=== PATIENT | male | born 1940 | race Caucasian/White ===

== ENCOUNTER 2021-04-11 10:49 | Observation (INO) | payer MEDICARE, BC ==
[~2021-04-11] VITALS: Ht 175.3 cm; Wt 69.5 kg
--- NOTE | ~2021-04-11 | HEMODYNAMI ---
PATIENT:ESPERANZA GRAVES MEDICAL RECORD: [id number] : 42 LOCATION:[facility] D.8 ADMISSION DATE: 04/11/21 Generatedon:111:34 Patient name: ESPERANZA GRAVES Patient #: [id number] SSN: DO B: 1940 Date of study: 04/12/2021 Page: Of Hemodynamic Procedure Report Patient Data Patient Demographics Procedure consent was obtained First Name: ESPERANZA Gender: Male Last Name: STAR : 1940 Middle Initial: M Age: 80 year(s) Patient #: [id number] Race: Unknown Additional ID: [id number] Contact details Address: [address] [place] [address] State: [place] City: [place] Zip code: [address] Past Medical History Allergies Allergen Reaction Date Comments Reported Other allergy 04/12/2021 SULFA,CEFAZOLIN Admission Admission Data Admission Date: 04/11/2021 Admission Time: 11:44 Arrival Date: 04/12/2021 Arrival Time: 0:00 Admit Source: Other Room #: D.2118 Height (in.): 68.9 BSA: 1.85 (m2) Height (cm.): 175 BMI: 22.86 (kg/m2) Weight (lbs.): 154.32 Weight (kg.): 70 Lab Results Lab Result Date: 04/12/2021 Lab Result Time: 0:00 Biochemistry Name Units Result Min Max BUN mg/dl 14 --(--*-)-- 7 18 Creatinine mg/dl 1.3 --(---*)-- 0.6 1.3 eGFR ml/min 56 *-(----)-- 90 120 NONAFRICAN CBC Name Units Result Min Max Hematocrit % 42.8 --(*---)-- 42 54 Hemoglobin g/dl 14 --(*---)-- 13.5 17.5 Procedure Procedure Types Cath Procedure Diagnostic Procedure C [facility] w/Coronaries Sedation Charges Moderate Sedation 25-39 minutes PCI Procedure Coronary Stent Coronary Stent Initial Hemochron ACT Test Procedure Description Procedure Date Procedure Date: 04/12/2021 Procedure Start Time: 11:08 Procedure End Time: 11:29 Procedure Staff Name Function Ang Garcia MD Performing Physician Anna Mcnamara RT Monitor Noemi Luevano RT Scrub Sang Ruggiero RN Nurse Semaj Carr RN Nurse Procedure Data Cath Procedure Fluoroscopy Diagnostic fluoroscopy Total fluoroscopy Time: 4.5 time: 4.5 min min Diagnostic fluoroscopy Total fluoroscopy dose: 526 dose: 526 mGy mGy Contrast Material Contrast Material Type Amount (ml) Isovue 370 97 Entry Location Entry Primary Successful Side Size Upsize Upsize Entry Closure Succes sful Closure Location (Fr) 1 (Fr) 2 (Fr) Remarks Device Remarks Femoral Right 5 Fr 6 Fr Exoseal artery Short Estimated blood loss: 10 ml Diagnostic catheters Device Type Used For End Catheter Placement MULTIPACK JL 4.0 5Fr Procedure catheter MULTIPACK 3DRC 5Fr Procedure catheter MULTIPACK Pigtail 5 Fr Procedure catheter Procedure Complications No complications Procedure Medications Medication Administration Route Dosage 0.9% NaCl I.V. 100 ml/hr Oxygen etCO2 Nasal cannula 2 l/min Heparin Flush Bag added to field 2 bags (1000units/500ml NS) Lidocaine 2% added to field 20 Versed I.V. 1 mg Fentanyl I.V. 50 mcg Versed I.V. 1 mg Heparin Bolus I.V. 5000 units Integrilin (Bolus I.V. 6.2 ml 2mg/ml) Fentanyl I.V. 50 mcg Plavix P.O. 600 mg Hemodynamics Rest BSA: 1.85 (m2) HGB: 14 (g/dl) O2 Consumption: Estimated: 201.37 (ml/min) O2 Cons umption indexed: Estimated:108.85 (ml/min/m) Heart Rate: 55 (bpm) Pressure Samples Time Site Value (mmHg) Purpose Heart Use Rate(bpm) 11:15 LV 75/-7,-5 Snapshot 66 Gradients Valve Time Site Site Mean SEP/DFP Peak To Heart Use 1 2 (mmHg) (sec/min) Peak Rate (mmHg) (bpm) Aortic 11:15 LV AO 68 Snapshots Pre Cath Intra NCS Post Cath Vital Signs Time Heart Resp SPO2 etCO2 NIBP (mmHg) Rhythm Pain Sedation Rate (ipm) (%) (mmHg) Status Level (bpm) 10:55:11 66 18 100 30.2 138/63(109) NSR 0 (11) 10(A) , No pain 10:59:32 60 13 97 0 137/65(97) NSR 0 (11) 10(A) , No pain 11:03:50 61 15 96 26.4 123/65(98) NSR 0 (11) 10(A) , No pain 11:08:04 57 15 96 28.7 116/66(94) NSR 0 (11) 9(A) , No pain 11:12:14 65 14 96 29.4 120/70(92) NSR 0 (11) 9(A) , No pain 11:16:28 69 14 96 34 123/65(88) NSR 0 (11) 9(A) , No pain 11:21:20 72 15 95 17.3 134/69(101) NSR 0 (11) 9(A) , No pain 11:26:32 68 14 95 15.1 156/68(109) NSR 0 (11) 10(A) , No pain 11:30:54 60 12 98 29.4 130/71(114) NSR 0 (11) 10(A) , No pain Medications Time Medication Route Dose Verified Delivered Reason Notes Effectiveness by by 10:53:05 0.9% NaCl I.V. 100 Ang Domínguez used for ml/hr St Vu Ruggiero RN procedure 10:53:14 Oxygen etCO2 2 Ang Domínguez used for Nasal l/min St Vu Ruggiero RN procedure cannula 10:53:25 Heparin Flush added 2 Ang Fry used for Bag to bags [facility] procedure (1000units/500ml field MD FELIPE NS) 10:53:34 Lidocaine 2% added 20ml Ang Fry for local to vial [facility] anesthetic field MD FELIPE 11:00:52 Versed I.V. 1 mg Ang Domínguez for sedation St Vu Ruggiero RN, MD 11:00:59 Fentanyl I.V. 50 Ang Domínguez for sedation mcg St Vu Ruggiero RN, MD 11:08:22 Versed I.V. 1 mg Ang Domínguez for sedation St Vu Ruggiero RN, MD 11:15:54 Heparin Bolus I.V. 5000 Ang Domínguez for verif ied units St Vu Ruggiero RN anticoagulation with MD semaj carr rn 11:17:08 Integrilin I.V. 6.2 Ang Domínguez for Waste d (Bolus 2mg/ml) ml St Vu Ruggiero RN antiplatelet 3.8 ml therapy of vial 11:22:05 Fentanyl I.V. 50 Ang Domínguez for sedation mcg St Vu Ruggiero RN, MD 11:29:49 Plavix P.O. 600 Ang Domínguez for mg St Vu Ruggiero RN antiplatelet therapy Procedure Log Time Note 10:27:52 Informed consent obtained and on chart 10:28:16 Procedure Status Urgent Heart Cath (IP). 10:28:19 Time tracking: Call back (After hours or weekends) 10:28:28 Plan of Care:Hemodynamics will remain stable., Cardiac rhythm will remain stable., Comfort level will be maintained., Respiratory function will remain adequate., Patient/ family verbilizes understanding of procedure., Procedure tolerated without complication., Recovers from procedure without complications.. 10:28:30 Sang Ruggiero RN sent for patient. Start room use. 10:28:38 H&P Date Dictated: 04/12/2021 ER History on chart.. 10:37:36 Patient allergic to Other allergySULFA,CEFAZOLIN 10:38:13 Lab Result : BUN 14 mg/dl 10:38:13 Lab Result : eGFR NONAFRICAN 56 ml/min 10:38:13 Lab Result : Creatinine 1.3 mg/dl 10:38:13 Lab Result : Hemoglobin 14 g/dl 10:38:13 Lab Result : Hematocrit 42.8 % 10:40:20 Patient Weight : 154.32 lbs 10:40:24 Patient Height : 68.9 inches 10:40:28 Arrival Date: 04/12/2021 12:00:00 AM 10:46:15 Patient received from Med II to CCL 1 Alert and oriented. Tansferred to table in Supine position. 10:46:16 Warm blankets applied, and musa hugger turned on for patient comfort. 10:46:16 Correct patient and procedure confirmed by team. 10:52:45 ECG and BP/O2 sat monitors applied to patient. 10:52:46 Baseline sample Acquired. 10:52:46 Vital chart was started 10:52:50 Rhythm: sinus rhythm 10:52:51 Full Disclosure recording started 10:52:54 Pre-procedure instructions explained to patient. 10:52:55 Pre-op teaching completed and patient verbalized understanding. 10:52:58 Family in patients room. 10:53:05 0.9% NaCl 100 ml/hr I.V. was administered by Sang Ruggiero RN; used for procedure; Verbal order read back and verified. 10:53:14 Oxygen 2 l/min etCO2 Nasal cannula was administered by Sang Ruggiero RN; used for procedure; Verbal order read back and verified. 10:53:25 Heparin Flush Bag (1000units/500ml NS) 2 bags added to field was administered by Ang Garcia MD; used for procedure; Verbal order read back and verified. 10:53:34 Lidocaine 2% 20ml vial added to field was administered by Ang Garcia MD; for local anesthetic; Verbal order read back and verified. 10:56:23 Patient NPO since Midnight. 10:56:26 Is the patient allergic to Iodine/contrast media? No. 10:56:28 Was the patient premedicated? No 10:56:31 Is patient on blood thinner?No 10:56:34 Patient diabetic? No. 10:56:35 If diabetic: On Metformin? N/A 10:56:36 ----Pre-sedation anethsthesia assessment.---- 10:56:39 Previous problem with sedation/anesthesia? No ? 10:56:40 Snore? Yes 10:56:44 Sleep apnea? Yes 10:56:45 Deviated septum? No 10:56:46 Opens mouth fully? Yes 10:56:47 Sticks out tongue? Yes 10:56:52 Airway obstruction? Yes ? 10:56:57 Pre procedure: right dorsailis pedis pulse 2+ Normal; easily identifiable; not easily obliterated 10:57:00 Modified Loyd's test Ulnar > 7 seconds. 10:57:01 Patient pain scale 0/10 ?. 10:57:23 IV patent on arrival in right antecubital with 0.9% NaCl at [facility]. 10:57:26 Lab results completed and on chart. 10:57:29 Stress Test: no; N/A ? 10:57:32 Right groin area was prepped with chlora-prep and draped in sterile fashion 10:57:33 Alarms reviewed by R. N. 10:57:34 Sharps counted by scrub and verified by R.N. 10:57:36 Use device set Femoral Dx 10:57:38 ACIST Syringe (67684) opened to sterile field. 10:57:38 Bag Decanter (2002S) opened to sterile field. 10:57:39 Medline Cath Pack ([id number]) opened to sterile field. 10:57:40 ACIST Hand Control (66940) opened to sterile field. 10:57:41 ACIST Manifold (79545) opened to sterile field. 10:57:42 DIAGNOSTIC Multipack 5Fr catheter set (TF4045) opened to sterile field. 10:57:44 SHEATH 5FR [place] (EHL835) opened to sterile field. 10:57:45 EMERALD Guide Wire (463-312) opened to sterile field. 10:57:46 Tegaderm 4 x 4 (1626W) opened to sterile field. 10:58:03 ACC Patient presents with Unstable Angina CCS Anginal Class 2--Slight limitation of ordinary activity. 10:58:06 Admit Source: Other 10:58:39 --------ALL STOP TIME OUT------ 10:58:40 Final Timeout: patient, procedure, and site verified with staff and physician. All members of the team are in agreement. 10:58:42 Right groin site verified by team. 10:58:51 Fire Safety Assessment: A--An alcohol-based skin anteseptic being used preoperatively., C--Open oxygen or nitrous oxide is being used., D--An ESU, laser, or fiber-optic light is being used. 10:58:56 Physical assessment completed. ASA score P 2 - A patient with mild systemic disease as per Ang Garcia MD. 10:59:00 3a) 45-59 Moderately reduced kidney function. 10:59:03 Maximum allowable contrast dose (3.7 X eGFR X 0.75)155 ml. 10:59:07 Sedation plan: IV Moderate Sedation Medication:Versed, Fentanyl 11:00:52 Versed 1 mg I.V. was administered by Sang Ruggiero RN; for sedation; Verbal order read back and verified. 11:00:59 Fentanyl 50 mcg I.V. was administered by Sang Ruggiero RN; for sedation; Verbal order read back and verified. 11:08:17 Procedure started. 11:08:22 Versed 1 mg I.V. was administered by Sang Ruggiero RN; for sedation; Verbal order read back and verified. 11:08:28 Local anesthetic to right femoral artery with Lidocaine 2% by Ang Garcia MD.INITIAL ACCESS ONLY 11:09:46 A 5 Fr sheath was inserted into the Right Femoral artery 11:10:14 A MULTIPACK JL 4.0 5Fr catheter was advanced over the wire and used for Procedure. 11:11:03 LCA angiography performed. 11:11:07 Injector settings: Ml/sec: 3, Volume: 6, 11:11:33 Catheter removed. 11:11:40 A MULTIPACK 3DRC 5Fr catheter was advanced over the wire and used for Procedure. 11:12:29 RCA angiography performed. 11:12:32 Injector settings: Ml/sec: 3, Volume: 6, 11:12:40 Catheter exchanged over wire. 11:14:13 A MULTIPACK Pigtail 5 Fr catheter was advanced over the wire and used for Procedure. 11:14:49 LV gram done using BAUM 11:15:05 LV hemodynamics recorded. 11:15:07 Injector settings: Ml/sec: 10, Volume: 20, 11:15:13 EF : 55 % 11:15:18 Catheter removed. 11:15:20 Proceeding to intervention. 11:15:24 Use device set LALO PCI 11:15:26 INFLATOR Merit BasixCompak (DX9721) opened to sterile field. 11:15:27 WHISPER 300cm guide wire ([id number]) opened to sterile field. 11:15:36 SHEATH 6FR [place] (PMW617) opened to sterile field. 11:15:46 Sheath upsized to a 6 Fr Short. 11:15:54 Heparin Bolus 5000 units I.V. was administered by Sang Ruggiero RN; for anticoagulation; verified with semaj carr rn Verbal order read back and verified. 11:16:14 GUIDE 6FR XBLAD 3.5 catheter ([id number]) opened to sterile field. 11:16:34 6 Fr XBLAD 3.5 guide catheter was inserted over the wire 11:16:43 Pre PCI Site: Knik pCirc has 90% stenosis. 11:16:47 ACC Pre-intervention MIGUEL Flow is 1. 11:17:08 Integrilin (Bolus 2mg/ml) 6.2 ml I.V. was administered by Sang Ruggiero RN; for antiplatelet therapy; Wasted 3.8 ml of vial Verbal order read back and verified. 11:18:19 WHISPER 300 wire advanced. 11:20:22 Wire advanced across lesion. 11:21:11 Inflate balloon Inflation number: 1 A EUPHORA 3.0 x 15 Balloon ([id number]) was prepped and advanced across the Prox CX 90, then inflated to 10 PADILLA for 0:21 (min:sec) . 11:21:45 Inflation number: 2 The EUPHORA 3.0 x 15 Balloon ([id number]) was reinflated across the Prox CX , to 12 PADILLA for 0:29 (min:sec) . 11:22:05 Fentanyl 50 mcg I.V. was administered by Sang Ruggiero RN; for sedation; Verbal order read back and verified. 11:22:41 Balloon removed over the wire. 11:24:49 Place stent Inflation Number: 3 A TONY RX 3.0 x 15 stent ([id number]) was prepped and advanced across the Prox CX . The stent was deployed at 14 PADILLA for 0:20 (min:sec) . 11:25:47 Inflation number: 4 The stent balloon was then re-inflated across the Prox CX to 6 PADILLA for 0:21 (min:sec) . 11:26:25 Stent catheter was removed intact over wire. 11:26:26 Wire removed. 11:26:26 Guide catheter removed. 11:26:30 EXOSEAL 6Fr (EX600) opened to sterile field. 11:27:11 Sheath removed intact; hemostasis achieved with Exoseal to the Right Femoral artery. 11:27:35 Procedure ended.(Physican Out) 11:27:45 Fluoroscopy time 04.50 minutes. 11:27:52 Fluoroscopy dose: 526 mGy 11:27:52 Flurop Dose total: 526 11::58 Dose Area Product 70300 mGy/cm. 11:28:10 Contrast amount:Isovue 370 97ml. 11:28:13 Maximum allowable dose exceeded? No. 11:28:14 Sharps counted by scrub and verified by R.N. 11:28:17 Post-op/insertion site Right Femoral artery dressed using a 4 x 4 and Tegaderm. 11:28:23 Post right femoral artery:stable, soft, clean and dry 11::25 Post Procedure Pulses reassessed and unchanged 11::28 Post procedure: right dorsailis pedis pulse 2+ Normal; easily identifiable; not easily obliterated. 11::31 Post-procedure physical assessment completed. ASA score P 2 - A patient with mild systemic disease as per Ang Garcia MD. 11:28:33 Post procedure rhythm: unchanged. 11::36 Estimated blood loss: 10 ml 11::38 Post procedure instruction explained to patient.Patient verbalizes understanding. 11::38 Patient needs reinforcement of post procedure teaching. 11::53 Procedure type changed to Cath procedure, Diagnostic procedure, LHC, [facility] w/Coronaries, Sedation Charges, Moderate Sedation 25-39 minutes, PCI procedure, Coronary Stent, Coronary Stent Initial, Hemochron ACT Test 11::25 Procedure and supply charges have been captured, reviewed, submitted and are correct. 11::31 Procedure Complication : No complications 11::38 [facility] Findings: MVD- PCI performed (see procedure note) 11:29:39 Operative report dictated upon procedure completion. 11:29:40 See physician's report for complete and final results. 11::48 Report given to [facility]. 11:29:49 Plavix 600 mg P.O. was administered by Sang Ruggiero RN; for antiplatelet therapy; Verbal order read back and verified. 11::52 Patient transfered to [facility] with Bed. 11:29:56 Procedure ended. 11:29:56 Full Disclosure recording stopped 11:30:36 ACC-PCI Only Patient was given prescriptions, or instructed by Ang Garcia MD to start/continue the following medications upon discharge: Plavix 11:30:38 End room use (Document Last) 11:30:48 End room use (Document Last) 11:31:48 End room use (Document Last) 11:32:43 ACT drawn and resulted at 299 seconds. (normal therapeutic range 180-240 seconds). 11:34:16 Vital chart was stopped Intervention Summary Intervention Notes Time ActionType Lesion and Equipment Used Action# Pressure Duration Attributes 11:21:11 Inflate Prox CX EUPHORA 3.0 x 1 10 00:21 balloon 15 Balloon ([id number]) 11:21:45 Reinflate Prox CX EUPHORA 3.0 x 2 12 00:29 balloon 15 Balloon ([id number]) 11:24:49 Place stent Prox CX TONY RX 3.0 x 3 14 00:20 15 stent ([id number]) 11:25:47 Reinflate Prox CX TONY RX 3.0 x 4 6 00:21 stent 15 stent balloon ([id number]) Device Usage Item Name Manufacture Quantity Catalog Hospital Part [facility] Lot# / Number Charge Number Stock Stock Serial# Code ACIST Syringe Acist 1 33986 746098 705755 645569 20 (07812) Medical Systems Inc Bag Decanter Microtek 1 2001S 649952 64418 339361 5 (2001S) Medical Inc. Medline Cath Medline 1 [id number] 489202 80824 943443 5 Pack ([id number]) ACIST Hand Acist 1 73709 003848 492893 395418 5 Control Medical (15787) Systems Inc ACIST Manifold Acist 1 43591 554296 968897 747669 5 (36156) Medical Systems Inc DIAGNOSTIC Cardinal 1 WF9797 044116 01114 365897 30 Multipack 5Fr Health catheter set (NQ7589) SHEATH 5FR Terumo 1 YMP301 401220 555977 193161 5 [place] (LRC964) EMERALD Guide Cardinal 1 502-455 644823 555050 298126 5 Wire (502-455) [facility] Tegaderm 4 x 4 3M 1 1626W 900831 448456 226812 5 (1626W) MULTIPACK JL Cardinal 1 866664 5 4.0 5Fr Health catheter MULTIPACK 3DRC Cardinal 1 142743 5 5Fr catheter Health MULTIPACK Cardinal 1 142311 5 Pigtail 5 Fr Health catheter INFLATOR Merit Merit 1 GC8281 445288 270284 968999 15 CortriumohSungy Mobile Medical (OM6586) WHISPER 300cm Clay 1 [id number] 229091 861380 460922 5 guide wire Vascular (1650658NF) SHEATH 6FR Terumo 1 BKX996 148222 570300 823127 40 [place] (RBE025) GUIDE 6FR Cardinal 1 03590473 563223 657884 861084 10 XBLAD 3.5 Health catheter (23846457) EUPHORA 3.0 x Medtronic 1 [id number] 077470 266219 058843 5 [id number] 15 Balloon (DEG2712V) TONY RX 3.0 x Medtronic 1 [id number] 097535 3408523 437385 5 [id number] 15 stent ([id number]) EXOSEAL 6Fr Cardinal 1 EX600 329535 436366 161468 10 (EX600) Health Signature Audit [place] Stage Time Signature Unsigned Intra-Procedure 04/12/2021 Anna Mcnamara 11:30:48 AM RT(R) Intra-Procedure 04/12/2021 Sang Ruggiero RN 11:31:48 AM Intra-Procedure 04/12/2021 Ang Koch 11:34:14 AM uV FEL[place] [address] [id number] [place] [address]
--- NOTE | ~2021-04-11 | EC ---
PATIENT:ESPERANZA GRAVES DATE OF SERVICE: 04/11/21 SEX: M MEDICAL RECORD: [id number] DATE OF : 42 LOCATION:D.M2 D.211 AGE OF PATIENT: 80 ADMISSION DATE: 04/11/21 REFERRING PHYSICIAN: INTERPRETING PHYSICIAN: NEA MAY MD ECHOCARDIOGRAM REPORT ECHO CHARGES 4 ECHO COMPLETE Date: 04/12/21 CLINICAL DIAGNOSIS: CHEST PAIN HX OF CAD/STENTS ECHOCARDIOGRAPHIC MEASUREMENTS (adult normal given) AC root (d.<3.7cm) 3.0 cm LV Septum d (<1.2 cm> 1.2 cm Valve Excursion 1.4 cm LV Septum (systole) 1.6 cm Left Atria (s.<4.0cm> 3.6 cm LVPW d(<1.2cm) 1.6 cm RV (d.<2.3cm) 3.1 cm LVPW (sytole) 1.9 cm LV diastole(<5.6CM) 4.6 cm MV E-F(>70mm/sec) cm LV systole 3.0 cm LVOT Diameter 1.9 cm MV exc.(>10mm) 1.2 cm Est.ejection fraction (50-75%) % DOPPLER: LVIT cm/sec A 65.0 cm/sec E 84.0 cm/sec LA cm/sec RVSP 30 mmHg LVOT 121 cm/sec AOP1/2T m/s Asc. Ao 118 cm/sec RVOT 62 cm/sec RA cm/sec PA 118 cm/sec AV Gradient Peak 5.57 mmHg AV Mean 2.91 mmHg AV Area 3.6 cm MV Gradient Peak 3.29 mmHg MV Mean 1.12 mmHg MV Area cm COMMENTS: Barrel Bung Remover And Dumper: 2 TONIE BROUSSARD Aquatic Facility Manager: 3 Dr. Mosquera TAPE# PACS Pericardial Effusion N DATE OF SERVICE: Adequate 2D, color-flow imaging, spectral Doppler, and M-Mode. FINDINGS: No LVH present. LV internal dimension is normal, Wall motion is normal. EF is greater than or equal to 55%. Aortic valve is tricuspid. No stenosis by Doppler interrogation. Left atrium is normal 3.6 cm. Mitral valve shows no prolapse. Trace MR. Right side is grossly normal. Mild TR. TRANSINT:[id number] Voice Confirmation ID: [id number] DOCUMENT ID: [id number] ECHOCARDIOGRAM REPORT [id number] ESPERANZA GRAVES GREGORY A MD CC: [id number] DICTATION DATE: 04/13/21 1132 ASTRONOMY TEACHER: 04/13/21 1344 DIS IN 04/12/21 [address] [place] [address]
--- NOTE | ~2021-04-11 | CN ---
PATIENT NAME:ESPERANZA GRAVES MEDICAL RECORD: [id number] : 42 LOCATION:[facility] D.2118 ADMIT DATE: 04/11/21 ACCOUNT: [id number] CONSULTING PHYSICIAN: ENA MAY MD REFERRING PHYSICIAN: MICHAELA ELIAS MD DATE OF CONSULTATION: 04/12/2021 HISTORY OF PRESENT ILLNESS: Esperanza Graves is a 80-year-old gentleman typically followed by Dr. Valencia with a history of coronary artery disease, status post intervention to the right. Has a history of hypertension, hyperlipidemia, has been maintaining quite well on medical therapy. He had onset of rest symptomatology yesterday while at home, was seen in [facility], he is finally ruled in for NSTEMI, transferred here for further evaluation. PAST MEDICAL HISTORY: Includes; 1. History of hypertension. 2. Hyperlipidemia. 3. Coronary artery disease as described above. MEDICATIONS: Include Flomax 0.4 mg p.o. every day, metoprolol 12.5 every day, pravastatin 80 every day, aspirin 81 every day, vitamin D supplementation. ALLERGIES: SULFA AND ANCEF. SOCIAL HISTORY: Smokes about a pack a day, nondrinker. Easily takes care of all his ADLs. No set exercise program. FAMILY HISTORY: Has a strong family history of coronary artery disease in several siblings. REVIEW OF SYSTEMS: The patient reports easy bruising but reports no swollen glands. The patient reports no fever, no night sweats, no significant weight gain, no significant weight loss. No significant exercise tolerance. The patient reports no dry eyes, no irritation, no vision change. Patient reports no difficulty hearing and no ear pain. Patient reports no frequent nose bleeds or nose and sinus problems. Patient reports on arm pain on exertion. No shortness of breath while lying down. No history of heart murmur. Patient reports no cough, no wheezing or coughing up blood. Patient reports no abdominal pain, no vomiting. Normal appetite. No diarrhea and not vomiting blood. No nausea and no constipation. Patient reports no incontinence. No difficulty urinating. No hematuria. No increased frequency. Patient reports no muscle aches. No weakness, no arthralgias, no back pain. No swelling of the extremities. Patient reports no abnormal mole, no jaundice, no rashes. Reports no loss of consciousness. No weakness and no numbness. No seizures, dizziness, or headaches. The patient reports no depression, no sleep disturbance, feeling safe in a relationship and no alcohol abuse. Patient reports on fatigue. Reports no runny nose or sinus pressure. No itching, no hives, and no frequent sneezing. PHYSICAL EXAMINATION: GENERAL: Well-developed, well-nourished, in no acute distress, appears stated age. Alert and oriented times 3. VITAL SIGNS: Blood pressure 135/51, pulse 57 and regular. HEENT: Normocephalic, atraumatic. NECK: No JVD or bruit. CONSULT REPORT [id number] ESPERANZA GRAVES HEART: Regular. A II/ systolic ejection murmur. LUNGS: Prolonged expiratory phase. ABDOMEN: Soft, nontender. EXTREMITIES: Pulses 2+. There is no edema. NEUROLOGIC: Grossly intact. DIAGNOSTIC DATA: EKG shows nonspecific ST-T changes. IMPRESSION: Non-ST elevation myocardial infarction, known history of coronary artery disease. PLAN: Diagnostic angiography, intervention based on the above. TRANSINT:[id number] Voice Confirmation ID: [id number] DOCUMENT ID: [id number] ENA MAY MD CC: [id number] DICTATION DATE: 04/12/21 1055 TARIFF COUNSEL: 04/12/[address] [facility] [address] [place] [address]
--- NOTE | ~2021-04-11 | OP ---
PATIENT NAME: ESPERANZA GRAVES MEDICAL RECORD: [id number] :42 LOCATION:D. D.[id number] ADMISSION DATE:04/11/21 SURGEON: ENA MAY MD DATE OF OPERATION: 04/12/2021 PROCEDURE PERFORMED: Left heart catheterization, selective coronary angiography, right femoral artery approach. CATHETERS: A 5-Bangladeshi sheath, 5/4 left and right Ramya, 5/4 pig. The procedure was well tolerated. The patient was returned to the connolly. Sheath removed. ExoSeal device was placed. FINDINGS: Left ventriculography in 30 degree BAUM view; normal wall motion and normal systolic function. CORONARY ANATOMY: Left main: Left main is free of disease. 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 Circumflex: Just proximal to the previously placed stent has a tight 90% plus stenosis, obviously a culprit. Right coronary artery: Free of disease. PLAN: Intervention to circumflex momentarily. DESCRIPTION OF PROCEDURE: A 5-Bangladeshi sheath exchanged for a 6-Bangladeshi sheath. XB-LAD guiding catheter provided excellent guide catheter support. A 300 cm Whisper wire was placed across the 90% stenosis, circumflex distal portion of the vessel. Pre-deployment balloon was a 3.0 x 15 mm Euphora. Stent deployed was a 3.0 x 15 mm [place] drug-eluting stent up to 14 atmospheres for 45 seconds. Final angiography showed excellent resolution of 90% stenosis, no significant residual. MIGUEL flow was 3 throughout the procedure. Heparin and Integrilin, both used during the case. Sheath was closed with ExoSeal device. Plavix was loaded in the lab. TRANSINT:[id number] Voice Confirmation ID: [id number] DOCUMENT ID: [id number] ENA MAY MD CC: [id number] DICTATION DATE: 04/12/21 1134 [employer] CONSULTANT: 04/12/21 1513 ADM IN [facility] [address] [place] [address]
[2021-04-11] MEDS ORDERED: PRAVASTATIN SOD10 MG PO ×2 (10:55→13:44)
[2021-04-11] MEDS ORDERED: METOPROLOL TART25 MG PO (10:56)
[2021-04-11] MEDS ORDERED: ASPIRIN81 MG PO (10:56)
[2021-04-11] MEDS ORDERED: VITAMIN D325 MC1 PO (10:56)
[2021-04-11] MEDS ORDERED: FLOMAX0.4 MG PO ×2 (10:56→13:44)
[2021-04-11 11:40] LABS: BASOPHILS 0.8 % (0-2); CALC OSMOLALITY 281 mosm/kg (275-300); CALCIUM 8.8 mg/dL (8.5-10.1); CARBON DIOXIDE 29.8 mmol/L (21.0-32.0); CHLORIDE - SERUM 107 mmol/L (98-107); CREATININE - SERUM 1.4 mg/dL (0.6-1.3); EOSINOPHILS 0.2 % (0-7); GLUCOSE 113 mg/dL (74-106); HEMATOCRIT 45.6 % (42.0-54.0); HEMOGLOBIN 15.1 g/dL (13.5-17.5); LYMPHOCYTES 23.9 % (15-50); MCH 28.2 pg (26.0-34.0); MCHC 33.1 g/dL (31.0-37.0); MCV 85.3 fL (80.0-100.0); MEAN PLATELET VOLUME 9.9 fL (7.4-10.4); MONOCYTES 8.5 % (2-11); NEUTROPHILS 66.6 % (40-80); PLATELET COUNT 115 10x3/uL (130-400); POTASSIUM - SERUM 4.6 mmol/L (3.5-5.1); RBC 5.34 10x6/uL (4.20-6.10); RDW 13.6 % (11.5-14.5); SODIUM 141 mmol/L (136-145); UREA NITROGEN 13 mg/dL (7-18); WBC 6.9 10x3/uL (4.8-10.8); eGFR NON AFRICAN AMERICAN 52 mL/min (90-120)
[2021-04-11 11:47] VITALS: BP 151/60
[2021-04-11 11:54] LABS: APTT 29.9 SECONDS (22.8-39.4); INR 1.24 (0.85-1.17); PROTIME 14.4 SECONDS (11.6-15.0)
[2021-04-11 11:58] LABS: BACTERIA RARE HPF (NONE SEEN); BILIRUBIN NEGATIVE (NEGATIVE); KETONE NEGATIVE (NEGATIVE); NITRITE NEGATIVE (NEGATIVE); SQUAMOUS EPITHELIAL 0-5 HPF (0-4); UROBILINOGEN NORMAL mg/dL (< 2); WHITE CELLS - URINE NONE SEEN HPF (0-1)
[2021-04-11 12:02] LABS: ALBUMIN 3.4 g/dL (3.4-5.0); ALKALINE PHOSPHATASE 96 U/L (30-120); ALT (SGPT) 15 U/L (10-68); CKMB 2.2 U/L (0.0-3.6); CREATINE KINASE 47 UL (21-232); MAGNESIUM - SERUM 2.3 mg/dL (1.8-2.4); PROTEIN - SERUM 6.1 g/dL (6.4-8.2)
[2021-04-11 12:05] LABS: TROPONIN-I 0.263 ng/mL (0.000-0.060)
[2021-04-11] MEDS ORDERED: TOPROL XL25 MG PO (13:45)
[2021-04-11 15:30] LABS: CKMB 2.8 U/L (0.0-3.6); CREATINE KINASE 54 UL (21-232)
[2021-04-11 15:31] LABS: TROPONIN-I 0.383 ng/mL (0.000-0.060)
--- NOTE | 2021-04-11 19:39 | NUR ---
RECEIVED VIA STRECHER FROM ER, A&OX4, PLACED ON TELEMTRY, BED IS LOW, SRX2, CALL LIGHT IN REACH, WILL CONTINUE PLAN OF CARE, AT BEDSIDE
[2021-04-11 21:50] LABS: CKMB 3.1 U/L (0.0-3.6); CREATINE KINASE 69 UL (21-232)
[2021-04-11 21:51] LABS: TROPONIN-I 0.373 ng/mL (0.000-0.060)
[2021-04-11 23:30] VITALS: BP 132/60
[2021-04-12 00:40] VITALS: BP 132/60; Ht 175.3 cm; Wt 69.5 kg
[2021-04-12 03:41] LABS: BASOPHILS 0.7 % (0-2); EOSINOPHILS 0.6 % (0-7); HEMATOCRIT 42.8 % (42.0-54.0); LYMPHOCYTES 34.5 % (15-50); MCH 27.8 pg (26.0-34.0); MCHC 32.7 g/dL (31.0-37.0); MCV 85.1 fL (80.0-100.0); MONOCYTES 9.7 % (2-11); NEUTROPHILS 54.5 % (40-80); PLATELET COUNT 96 10x3/uL (130-400); RBC 5.03 10x6/uL (4.20-6.10); RDW 13.3 % (11.5-14.5); WBC 6.3 10x3/uL (4.8-10.8)
[2021-04-12 03:45] LABS: CALC OSMOLALITY 287 mosm/kg (275-300); CALCIUM 8.3 mg/dL (8.5-10.1); CARBON DIOXIDE 30.8 mmol/L (21.0-32.0); CHLORIDE - SERUM 110 mmol/L (98-107); CREATININE - SERUM 1.3 mg/dL (0.6-1.3); GLUCOSE 104 mg/dL (74-106); SODIUM 144 mmol/L (136-145); UREA NITROGEN 14 mg/dL (7-18); eGFR NON AFRICAN AMERICAN 56 mL/min (90-120)
[2021-04-12 03:53] LABS: PLATELET ESTIMATE DECREASED
[2021-04-12 04:06] LABS: ALBUMIN 2.9 g/dL (3.4-5.0); ALKALINE PHOSPHATASE 80 U/L (30-120); BILIRUBIN - TOTAL 0.35 mg/dL (0.2-1.3); CKMB 2.9 U/L (0.0-3.6); CREATINE KINASE 43 UL (21-232); MAGNESIUM - SERUM 2.2 mg/dL (1.8-2.4); PHOSPHOROUS 4.5 mg/dL (2.5-4.9); PROTEIN - SERUM 5.3 g/dL (6.4-8.2)
[2021-04-12 04:08] LABS: ALT (SGPT) 9 U/L (10-68); TROPONIN-I 0.398 ng/mL (0.000-0.060)
[2021-04-12 04:24] VITALS: BP 121/53
--- NOTE | 2021-04-12 07:20 | NUR ---
RECIEVE REPORT. ALERT AND ORIENTED X4. SITTING UP IN BED. SINUS MADHAVI 55 ON TELEMETRY. DENIES ANY NEEDS. CONTINUE PLAN OF CARE AND SAFETY PRECAUTIONS.
[2021-04-12 07:30] VITALS: BP 135/51
[2021-04-12 08:58] LABS: CHOL - HDL RATIO 3.3 ratio (2.3-4.9); LDL-HDL RATIO 1.7 ratio (1.5-3.5)
[2021-04-12] MEDS ORDERED: PLAVIX75 MG PO (11:55)
--- NOTE | 2021-04-12 17:37 | NUR ---
ALERT AND ORIENTED X4. STANDING UP AT SINK. FAMILY AT BEDSIDE. RT GROIN DRESSING C/D/I. FREE FROM BLEEDING. FREE FROM HEMATOMA. DC RT AC IV TIP INTACT. DISCHARGE INSTRUCTIONS GIVEN VERBALLY AND WRITTEN. DISCHARGE PAPERS SIGNED ON CHART. ESCORT TO RIDE VIA WHEELCHAIR. REMAINS FREE FROM INJURY.
== END 2021-04-12 17:39 | disposition home or self-care (01) ==
LOC: D.ER 10:49 → OBSVTIME 11:44 → D.EDHOLD 11:44 → D.M2 16:19
PROVIDERS: Family Medicine; Internal Medicine Interventional Cardiology; ADMIT Emergency Medicine; ATTEND Emergency Medicine
DX: I25.110 Atherosclerotic heart disease of native coronary artery with unstable angina pectoris (principal); R07.9 Chest pain, unspecified; E78.5 Hyperlipidemia, unspecified; I10 Essential (primary) hypertension; Z72.0 Tobacco use; I21.4 Non-ST elevation (NSTEMI) myocardial infarction; J98.11 Atelectasis
CPT/HCPCS: 93458; C9600